=== PATIENT | male | born 1970 | race Caucasian/White ===

== ENCOUNTER 2020-11-12 04:21 | Day surgery (SDC) | payer BC ==
[2020-11-10 10:12] VITALS: BMI 26.3
[2020-11-12] MEDS ORDERED: PROPOFOL 20 ML ONE ×2 (08:54→09:29)
[2020-11-12] MEDS ORDERED: MIDAZOLAM HCL 2 MG/2 ML SINGLE DOSE VIAL ONE (08:54)
[2020-11-12] MEDS ORDERED: KETOROLAC TROMETHAMINE 30 MG/1 ML VIAL ONE (08:56)
[2020-11-12] MEDS ORDERED: ceFAZolin SODIUM 1 GM VIAL ONE (08:56)
[2020-11-12] MEDS ORDERED: BUPIVACAINE HCL/PF 0.5% (5MG/ML) 10 ML VIAL ONE (09:07)
[2020-11-12] MEDS ORDERED: ceFAZolin SODIUM 1 GM VIAL IVPB ONE (09:25)
[2020-11-12] MEDS ORDERED: LIDOCAINE HCL 1%, 10 MG/ML (20ML VIAL) INF ONE (09:48)
[2020-11-12] MEDS ORDERED: BUPIVACAINE HCL/PF 0.5% (5 MG/ML) 30 ML VIAL IJ ONE (09:49)
[2020-11-12 10:09] VITALS: PULSE 66
[2020-11-12 12:04] VITALS: BP 159/89; TEMP 97.9
[2020-11-12] MEDS ORDERED: oxyCODONE HCL 5 MG TABLET PO PRN (12:47)
[2020-11-12] MEDS ORDERED: ONDANSETRON 4 MG/2 ML VIAL IVPUSH PRN (12:47)
[2020-11-12] MEDS ORDERED: LACTATED RINGERS SOLUTION 1,000 ML IV SCH (13:00)
== END 2020-11-12 12:10 | disposition home or self-care (01) ==
LOC: JASU-SURG 04:21
PROVIDERS: ATTEND Orthopaedic Surgery
PROC: 0LB80ZZ Excision of Left Hand Tendon, Open Approach (ICD-10-PCS; 2020-11-12)
PROC: 0LN80ZZ Release Left Hand Tendon, Open Approach (ICD-10-PCS; principal; 2020-11-12 09:00)
DX: M65.342 Trigger finger, left ring finger (principal)